=== PATIENT | female | born 1945 | race Asian ===

== ENCOUNTER 2019-04-07 12:56 | Observation (INO) | payer OTHER | END 2019-04-08 14:06 | disposition home or self-care (01) | LOC: J4S 04-08 02:55 → JER 12:56 → JERBED 18:17 ==

== ENCOUNTER 2020-10-05 04:46 | Day surgery (SDC) | payer OTHER ==
[2020-10-03 15:11] VITALS: BMI 28.3
[2020-10-05 12:20] VITALS: BP 139/59; PULSE 67
[2020-10-05 12:33] VITALS: TEMP 98
== END 2020-10-05 12:33 | disposition home or self-care (01) ==
LOC: JASU-ENDO 04:46
PROVIDERS: ATTEND Internal Medicine Gastroenterology
PROC: 0DBL8ZX Excision of Transverse Colon, Via Natural or Artificial Opening Endoscopic, Diagnostic (ICD-10-PCS; 2020-10-05)
PROC: 0DB98ZX Excision of Duodenum, Via Natural or Artificial Opening Endoscopic, Diagnostic (ICD-10-PCS; 2020-10-05)
PROC: 0DB78ZX Excision of Stomach, Pylorus, Via Natural or Artificial Opening Endoscopic, Diagnostic (ICD-10-PCS; 2020-10-05)
PROC: 0DB68ZX Excision of Stomach, Via Natural or Artificial Opening Endoscopic, Diagnostic (ICD-10-PCS; 2020-10-05)
PROC: 0DBH8ZX Excision of Cecum, Via Natural or Artificial Opening Endoscopic, Diagnostic (ICD-10-PCS; principal; 2020-10-05 11:00)
DX: Z12.11 Encounter for screening for malignant neoplasm of colon (principal); K92.1 Melena; D12.0 Benign neoplasm of cecum; D12.3 Benign neoplasm of transverse colon; K57.30 Diverticulosis of large intestine without perforation or abscess without bleeding; K29.80 Duodenitis without bleeding; K29.50 Unspecified chronic gastritis without bleeding; K31.7 Polyp of stomach and duodenum
CPT/HCPCS: 88305-TC; 88342-TC

== ENCOUNTER 2021-11-06 19:47 | Emergency (ER) | payer OTHER ==
[2021-11-06 19:56] VITALS: BP 173/64; PULSE 71; BMI 28.1
[2021-11-06] MEDS ORDERED: SODIUM CHLORIDE 1,000 ML IV ONE (19:57)
[2021-11-06] MEDS ORDERED: morphine CARPU-JECT 2 MG/1 ML DISP.SYRIN IVPUSH ONE (19:58)
[2021-11-06] MEDS ORDERED: morphine SULFATE 4 MG/ML VIAL ONE (20:31)
[2021-11-06 20:52] LABS: EPITHELIAL CELLS RARE /hpf
[2021-11-06 21:17] LABS: ALBUMIN 4.1 g/dl (3.4-5.0); BILIRUBIN,TOTAL 0.9 mg/dl (0.2-1); CALCIUM 9.6 mg/dl (8.5-10); CREATININE 0.8 mg/dl (0.55-1.3); TOT PROT 6.5 g/dl (6.4-8.2)
[2021-11-06 22:16] LABS: BASO % 0.4 % (0-2.0); EOS % 4.3 % (0-4.5); HEMATOCRIT 36.7 % (32.4-45.2); HEMOGLOBIN 12.2 GM/dL (10.7-15.3); LYMPH % 25.7 % (8-40); MCHC 33.3 g/dl (32.0-36.0); MEAN CELL VOLUME 84.2 fl (80-96); MONO % 5.4 % (3.8-10.2); NEUT % 64.2 % (42.8-82.8); PLATELET COUNT 218 10^3/uL (134-434); RBC 4.37 M/mm3 (3.60-5.2); RDW 13.7 % (11.6-15.6)
[2021-11-06 22:37] VITALS: TEMP 98.7
== END 2021-11-06 23:30 | disposition home or self-care (01) ==
LOC: FER 19:47
PROC: 3E033NZ Introduction of Analgesics, Hypnotics, Sedatives into Peripheral Vein, Percutaneous Approach (ICD-10-PCS; principal; 2021-11-06)
PROC: 3E0337Z Introduction of Electrolytic and Water Balance Substance into Peripheral Vein, Percutaneous Approach (ICD-10-PCS; 2021-11-06)
DX: R10.9 Unspecified abdominal pain (principal)
CPT/HCPCS: 36415; 74177-TC; 80053; 81003; 81015; 85025; 96361; 96374; 99285-25; C9803; Q9967; U0003; U0005

== ENCOUNTER 2022-07-20 15:20 | Emergency (ER) | payer OTHER ==
[2022-07-20 15:23] VITALS: RESP 18; TEMP 98.6; BMI 28.9
[2022-07-20] MEDS ORDERED: ACETAMINOPHEN 1000 MG/100 ML BAG IVPB ONE (15:56)
[2022-07-20] MEDS ORDERED: ONDANSETRON 4 MG/2 ML VIAL IVPUSH ONE (15:56)
[2022-07-20] MEDS ORDERED: SODIUM CHLORIDE 1,000 ML IV STA (16:17)
[2022-07-20] MEDS ORDERED: ONDANSETRON 4 MG/2 ML VIAL ONE (16:17)
[2022-07-20] MEDS ORDERED: ACETAMINOPHEN INJECTION 100 ML IVPB ONE (16:17)
[2022-07-20 17:31] LABS: BASO % 0.7 % (0-2.0); EOS % 5.4 % (0-4.5); HEMATOCRIT 39.3 % (32.4-45.2); HEMOGLOBIN 12.9 GM/dL (10.7-15.3); LYMPH % 26.8 % (8-40); MCH 27.6 pg (25.7-33.7); MCHC 32.8 g/dl (32.0-36.0); MEAN CELL VOLUME 84.1 fl (80-96); MONO % 7.2 % (3.8-10.2); NEUT % 59.9 % (42.8-82.8); PLATELET COUNT 248 10^3/uL (134-434); RBC 4.67 M/mm3 (3.60-5.2); RDW 13.4 % (11.6-15.6); WHITE BLOOD COUNT 7.8 K/mm3 (4.0-10.0)
[2022-07-20 17:38] LABS: INR 1.02 (0.83-1.09); PROTHROMBIN TIME (PATIENT) 11.7 SEC (9.7-13.0)
[2022-07-20 17:49] LABS: ALBUMIN 3.8 g/dl (3.4-5.0); BLOOD UREA NITROGEN 8.1 mg/dL (7-18); CALCIUM 9.3 mg/dL (8.5-10.1)
[2022-07-20 17:52] LABS: CREATININE 0.8 mg/dL (0.55-1.3)
[2022-07-20 17:54] LABS: BILIRUBIN,TOTAL 1.4 mg/dL (0.2-1); TOT PROT 6.7 g/dl (6.4-8.2)
[2022-07-20 17:59] LABS: URINE APPEARANCE CLEAR; URINE BILIRUBIN NEGATIVE (NEGATIVE); URINE COLOR YELLOW; URINE GLUCOSE (UA) NEGATIVE (NEGATIVE); URINE KETONE NEGATIVE (NEGATIVE); URINE LEUK ESTERASE NEGATIVE (NEGATIVE); URINE NITRITE NEGATIVE (NEGATIVE); URINE PROTEIN NEGATIVE (NEGATIVE); URINE UROBILINOGEN 0.2 mg/dL (0.2-1.0)
[2022-07-20 18:00] VITALS: BP 156/58; PULSE 65
== END 2022-07-20 21:33 | disposition home or self-care (01) ==
LOC: JER 15:20
PROC: 3E033GC Introduction of Other Therapeutic Substance into Peripheral Vein, Percutaneous Approach (ICD-10-PCS; principal; 2022-07-20)
DX: R10.30 Lower abdominal pain, unspecified (principal)
CPT/HCPCS: 36415; 74177-TC; 80053; 81003; 84484; 85025; 85610; 85730; 87086; 93005; 93010; 99285-25; Q9967

== ENCOUNTER 2023-04-22 11:33 | Observation (INO) | payer OTHER ==
[2023-04-22 12:17] VITALS: RESP 18; BMI 28.3
[2023-04-22 15:12] LABS: INR 1.03 (0.83-1.09)
[2023-04-22 15:14] LABS: ACTIVATED PTT 26.5 SECONDS (25.2-36.5)
[2023-04-22 15:21] LABS: ALBUMIN 4.1 g/dl (3.4-5.0); BILIRUBIN,TOTAL 1.3 mg/dl (0.2-1); CALCIUM 9.7 mg/dl (8.5-10); CREATININE 0.8 mg/dl (0.55-1.3); MAGNESIUM 1.8 mg/dL (1.8-2.4); POTASSIUM 4.1 mmol/L (3.5-5.1); TOT PROT 6.7 g/dl (6.4-8.2)
[2023-04-22 15:51] LABS: HEMATOCRIT 37.6 % (32.4-45.2); HEMOGLOBIN 12.7 G/dL (10.7-15.3); MCH 29.1 pg (25.7-33.7); MCHC 33.8 g/dl (32.0-36.0); MEAN PLT VOLUME 8.9 fl (7.5-11.1); PLATELET COUNT 227.4 10^3/uL (134-434); RBC 4.37 10^6/uL (3.60-5.2); RDW 14.4 % (11.6-15.6); WHITE BLOOD COUNT 7.4 10^3/uL (4.0-10.8)
[2023-04-22 15:54] LABS: PLATELET ESTIMATE ADEQUATE
[2023-04-22] MEDS ORDERED: FAMOTIDINE 20 MG TABLET PO ONE (16:17)
[2023-04-22] MEDS ORDERED: ACETAMINOPHEN 500 MG TABLET (FP) PO ONE (16:21)
[2023-04-22] MEDS ORDERED: ACETAMINOPHEN 500 MG TABLET (FP) ONE (16:32)
[2023-04-22] MEDS ORDERED: FAMOTIDINE 20 MG TABLET ONE (16:32)
[2023-04-22 19:22] LABS: EPITHELIAL CELLS FEW /hpf
[2023-04-22] MEDS ORDERED: MAG HYDROX/AL HYDROX/SIMETH 30 ML UNIT-DOSE CUP PO PRN (19:31)
[2023-04-22] MEDS: ATORVASTATIN CA 20 MG TABLET (FP) PO SCH (21:34)
[2023-04-22] MEDS: LOSARTAN POTASSIUM 50 MG TABLET PO SCH (21:34)
[2023-04-22] MEDS: BRIMONIDINE TARTRATE 0.15% OPHTHALMIC 5 ML BOTTLE OU SCH (21:39)
[2023-04-23 08:30] LABS: CALCIUM 9.5 mg/dl (8.5-10); CREATININE 0.8 mg/dl (0.55-1.3)
[2023-04-23] MEDS: ASPIRIN 81 MG CHEWABLE TABLETS PO SCH (09:10)
[2023-04-23 09:11] LABS: BASO % 0.6 % (0-2.0); EOS % 6.9 % (0-4.5); HEMATOCRIT 36.2 % (32.4-45.2); HEMOGLOBIN 11.7 GM/dL (10.7-15.3); LYMPH % 33.8 % (8-40); MCH 27.4 pg (25.7-33.7); MCHC 32.3 g/dl (32.0-36.0); MEAN CELL VOLUME 84.8 fl (80-96); MEAN PLT VOLUME 8.1 fl (7.5-11.1); MONO % 7.1 % (3.8-10.2); NEUT % 51.6 % (42.8-82.8); PLATELET COUNT 250 10^3/uL (134-434); RBC 4.27 M/mm3 (3.60-5.2); RDW 13.1 % (11.6-15.6); WHITE BLOOD COUNT 5.9 K/mm3 (4.0-10.0)
[2023-04-23] MEDS: LOSARTAN POTASSIUM 50 MG TABLET PO SCH ×2 (09:11→21:19)
[2023-04-23] MEDS: HYDROCHLOROTHIAZIDE 25 MG TABLET (FP) PO SCH (09:11)
[2023-04-23] MEDS: MULTIVITAMINS (DAILY MVI) TABLET (FP) PO SCH (09:11)
[2023-04-23] MEDS: PANTOPRAZOLE 40 MG TABLET PO SCH (09:12)
[2023-04-23] MEDS: BRIMONIDINE TARTRATE 0.15% OPHTHALMIC 5 ML BOTTLE OU SCH ×2 (09:16→21:19)
[2023-04-23] MEDS: ATORVASTATIN CA 20 MG TABLET (FP) PO SCH (21:19)
[2023-04-24 08:39] LABS: ALBUMIN 3.9 g/dl (3.4-5.0); CALCIUM 9.6 mg/dl (8.5-10); CREATININE 0.7 mg/dl (0.55-1.3); POTASSIUM 4.6 mmol/L (3.5-5.1); TOT PROT 6.6 g/dl (6.4-8.2)
[2023-04-24 08:43] LABS: BILIRUBIN,TOTAL 1.8 mg/dl (0.2-1)
[2023-04-24] MEDS: MULTIVITAMINS (DAILY MVI) TABLET (FP) PO SCH (09:41)
[2023-04-24] MEDS: LOSARTAN POTASSIUM 50 MG TABLET PO SCH (09:41)
[2023-04-24] MEDS: BRIMONIDINE TARTRATE 0.15% OPHTHALMIC 5 ML BOTTLE OU SCH (09:41)
[2023-04-24] MEDS: HYDROCHLOROTHIAZIDE 25 MG TABLET (FP) PO SCH (09:41)
[2023-04-24] MEDS: ASPIRIN 81 MG CHEWABLE TABLETS PO SCH (09:41)
[2023-04-24] MEDS: PANTOPRAZOLE 40 MG TABLET PO SCH (09:41)
[2023-04-24 09:50] LABS: BASO % 0.5 % (0-2.0); EOS % 7.8 % (0-4.5); HEMATOCRIT 39.1 % (32.4-45.2); LYMPH % 28.6 % (8-40); MCH 27.7 pg (25.7-33.7); MCHC 33.2 g/dl (32.0-36.0); MEAN CELL VOLUME 83.4 fl (80-96); MEAN PLT VOLUME 7.7 fl (7.5-11.1); MONO % 6.6 % (3.8-10.2); NEUT % 56.5 % (42.8-82.8); PLATELET COUNT 268 10^3/uL (134-434); RBC 4.69 M/mm3 (3.60-5.2); RDW 13.5 % (11.6-15.6); WHITE BLOOD COUNT 7.6 K/mm3 (4.0-10.0)
[2023-04-24 10:15] VITALS: BP 144/63; PULSE 76; TEMP 98.1
[2023-04-24] MEDS ORDERED: REGADENOSON 0.4 MG/5 ML PRE-FILLED SYRINGE IVPUSH ONE ×2 (11:19→12:30)
== END 2023-04-24 18:57 | disposition home or self-care (01) ==
LOC: FER 11:33 → FM/S 17:17 → INTOOBSV 17:17
PROVIDERS: ADMIT Internal Medicine
PROC: 3E033GC Introduction of Other Therapeutic Substance into Peripheral Vein, Percutaneous Approach (ICD-10-PCS; principal; 2023-04-22)
DX: R07.89 Other chest pain (principal); I10 Essential (primary) hypertension; I25.10 Atherosclerotic heart disease of native coronary artery without angina pectoris; I25.2 Old myocardial infarction; E78.5 Hyperlipidemia, unspecified; Z96.653 Presence of artificial knee joint, bilateral; Z88.0 Allergy status to penicillin; K21.9 Gastro-esophageal reflux disease without esophagitis; Z79.82 Long term (current) use of aspirin
CPT/HCPCS: 0241U-QW; 36415; 70450-TC; 71046-TC-FY; 78452-TC; 80048; 80053; 80061; 81003; 81015; 83735; 84484; 85025; 85027; 85610; 85730; 87086; 93005; 93017; 93306-TC; 96374; 99285-25; A9502; G0378; J2785